=== PATIENT | male | born 1970 | race African-American/Black ===

== ENCOUNTER 2022-03-03 09:55 | Emergency (ER) | payer OTHER ==
[~2022-03-03] VITALS: Ht 182.9 cm; Wt 140.9 kg
[2022-03-03 14:06] VITALS: BP 148/95
== END 2022-03-03 14:11 | disposition home or self-care (01) ==
LOC: EMS 09:59
DX: S46.012A Strain of muscle(s) and tendon(s) of the rotator cuff of left shoulder, initial encounter (principal); Z91.018 Allergy to other foods; X50.0XXA Overexertion from strenuous movement or load, initial encounter; Y93.89 Activity, other specified; Y92.89 Other specified places as the place of occurrence of the external cause; Y99.0 Civilian activity done for income or pay
CPT/HCPCS: 29105; 99283